=== PATIENT | male | born 1950 | race Caucasian/White ===

== ENCOUNTER → 2018-06-02 | Outpatient (CLI) | payer OTHER ==
[~2018-06-02] MED LIST: HYDR-3245 PO; LEVO125T5 PO; OMEP-110 PO; TRAZ50TA66 PO
== END | disposition home or self-care (01) ==
LOC: CARD 08:51
PROVIDERS: ATTEND Internal Medicine
DX: I69.911 Memory deficit following unspecified cerebrovascular disease (principal)
CPT/HCPCS: 95819

== ENCOUNTER 2020-04-22 08:50 | Outpatient (CLI) | payer OTHER | END 2020-04-22 23:59 | disposition home or self-care (01) | LOC: PETCFH 08:50 | PROVIDERS: ATTEND Nurse Practitioner | DX: R91.8 Other nonspecific abnormal finding of lung field (principal); K44.9 Diaphragmatic hernia without obstruction or gangrene; K40.20 Bilateral inguinal hernia, without obstruction or gangrene, not specified as recurrent; N20.0 Calculus of kidney; N28.1 Cyst of kidney, acquired | CPT/HCPCS: 78815; A9552 ==